=== PATIENT | male | born 1930 | race Hispanic/Latino ===

== ENCOUNTER 2017-03-24 12:13 | Inpatient (IN) | payer MEDICARE, OTHER ==
[2017-03-24] MEDS ORDERED: Morphine 2 mg/ml ISec IM STA ×2 (13:05→15:44)
--- NOTE | 2017-03-24 13:12 | ED PDOC ---
Arrival/HPI - General Historian: Patient, Family - History of Present Illness Time/Duration: < week Symptom Onset: Sudden Symptom Course: Unchanged Severity Level: Severe Context: Home <Katia Davies - Last Filed: 03/24/17 17:09> <SalWellington P - Last Filed: 03/24/17 22:14> - General Chief Complaint: Trauma Time Seen by Provider: 03/24/17 12:34 - History of Present Illness Narrative History of Present Illness (Text): 03/24/17 13:07 87M w/PMH sig for Parkinson's disease evaluated for right back pain x 2-3 days. Patient reports he feel on Thursday or Thursday - did not disclose to daughter. Pt was attempting to get something from closet, fell backward onto a small step stool. Pain started 1-2 days after fall, located over right midthoracic/flank area, severe, non radiating, constant. Pt took Ibuprofen without relief. Admits to pain aggravation with movement/deep inspiration/coughing/sneezing. Denies head trauma, LOC, N/V/F/C, SOB, chest pain, palpitations, bowel or bladder incontinence, saddle anesthesia, changes in motor strength or sensation from baseline, headache, vision changes, other complaints. PMH: Parkinson's disease, HTN, osteoporosis PSH: Cholecystectomy All: NKDA, AMS w/opiate pain meds SH: Lives with daughter, admits to 1/2 glass of wine nightly, denies tobacco or illicit drugs. PMD: Perveen (Katia Davies) Associated Symptoms (Text): 03/24/17 13:07 pain with deep inspiration, pain with movement, pain with ambulation (Katia Davies) Past Medical History - Provider Review Nursing Documentation Reviewed: Yes - Cardiac Hx Hypertension: Yes - Pulmonary Hx Respiratory Disorders: No - Neurological Hx Parkinson's Disease: Yes - HEENT Hx HEENT Disorder: No - Renal Hx Renal Disorder: No - Endocrine/Metabolic Hx Endocrine Disorders: No - Hematological/Oncological Hx Blood Disorders: No - Integumentary Hx Dermatological Disorder: No - Musculoskeletal/Rheumatological Hx Falls: Yes Hx Osteoporosis: Yes - Gastrointestinal Hx Gastrointestinal Disorders: No - Genitourinary/Gynecological Hx Genitourinary Disorders: No - Psychiatric Hx Psychophysiologic Disorder: No Hx Substance Use: No - Surgical History Hx Cholecystectomy: Yes <Katia Davies - Last Filed: 03/24/17 17:09> Family/Social History - Physician Review Nursing Documentation Reviewed: Yes Family/Social History: No Known Family HX Smoking Status: Never Smoked Hx Alcohol Use: No Hx Substance Use: No <Katia Davies - Last Filed: 03/24/17 17:09> Allergies/Home Meds <Katia Davies - Last Filed: 03/24/17 17:09> <Wellington Sal - Last Filed: 03/24/17 22:14> Allergies/Adverse Reactions: Allergies acetaminophen [From Percocet] Adverse Reaction (Severe, Verified 03/24/17 18:34) Agitation when given on past visit Daughter confirmed adverse reaction at bedside with this RN. oxycodone [From Percocet] Adverse Reaction (Severe, Verified 03/24/17 18:34) Agitation when given on past visit Daughter confirmed adverse reaction at bedside with this RN. Home Medications: Home Meds Medication Instructions Recorded Confirmed Carbidopa/Levodopa 1 tab PO TID 03/24/17 03/24/17 [Carbidopa-Levodopa 25-100 Tab] Gabapentin [Neurontin] 300 mg PO HS 03/24/17 03/24/17 Lisinopril/Hydrochlorothiazide 1 tab PO DAILY 03/24/17 03/24/17 [Lisinopril-Hctz 10-12.5 mg Tab] Review of Systems - Physician Review All systems were reviewed & negative as marked: Yes - Review of Systems Constitutional: Normal. absent: Fevers Eyes: Normal. absent: Vision Changes ENT: Normal. absent: Sore Throat Respiratory: absent: Normal (pain with deep inspiration) Cardiovascular: Normal. absent: Chest Pain, Palpitations Gastrointestinal: Normal. absent: Stool Changes, Constipation, Diarrhea, Nausea , Vomiting, Appetite Changes, Hematochezia, Hematemesis Genitourinary Male: Normal. absent: Dysuria, Frequency, Hematuria Musculoskeletal: Back Pain. absent: Neck Pain Skin: Normal Neurological: Normal. absent: Headache, Dizziness <Katia Davies - Last Filed: 03/24/17 17:09> Physical Exam Vital Signs Reviewed: Yes Temperature: Afebrile Blood Pressure: Hypertensive Pulse: Regular Respiratory Rate: Normal Appearance: Positive for: Non-Toxic, Comfortable Pain Distress: None Mental Status: Positive for: Alert and Oriented X 3 - Systems Exam Head: Present: Atraumatic, Normocephalic. No: Contusion, Ecchymosis Extroacular Muscles: Present: EOMI Mouth: Present: Moist Mucous Membranes Nose (External): Present: Atraumatic Neck: No: Paraspinal Tenderness Respiratory/Chest: Present: Clear to Auscultation, Good Air Exchange. No: Respiratory Distress, Accessory Muscle Use Cardiovascular: Present: Regular Rate and Rhythm, Normal S1, S2. No: Murmurs Abdomen: Present: Normal Bowel Sounds. No: Tenderness, Distention, Peritoneal Signs Back: No: Normal Inspection (tenderness of right midthoracic region of back/ flank, no point tenderness over spinus processes of vertbra), Midline Tenderness Upper Extremity: Present: Normal Inspection. No: Cyanosis, Edema Lower Extremity: Present: Normal Inspection. No: Edema Neurological: Present: GCS=15, CN II-XII Intact, Speech Normal, Motor Func Grossly Intact (baseline is decreased due to Parkinson's), Normal Sensory Function Skin: Present: Warm, Dry, Normal Color. No: Rashes, Erythematous, Laceration, Abrasion Psychiatric: Present: Alert, Oriented x 3, Normal Insight, Normal Concentration <Katia Davies - Last Filed: 03/24/17 17:09> Vital Signs Temp Pulse Resp BP Pulse Ox 03/24/17 16:19 83 18 175/81 H 96 03/24/17 14:13 98.4 F 76 19 150/70 97 03/24/17 12:18 98.2 F 76 16 192/78 H 98 03/24/17 12:13 98.3 F 70 17 156/66 H 96 Medical Decision Making <Katia Davies - Last Filed: 03/24/17 17:09> <Wellington Sal - Last Filed: 03/24/17 22:14> ED Course and Treatment: 03/24/17 13:14 will order imaging studies and give small dose of pain medication to make patient comfortable 03/24/17 16:[address] Beckwith, who accepts pt to her service. Dr. Beckwith requesting consults from Neurosurgery- Dr. Arciniega, Neurology-Dr. Marcelle Blackwell, and IR-Dr. Danny Zacarias. Consults were placed. Admission order submitted. Patient's daughter at bedside informed regarding decision to admit, verbalized understanding. 03/24/17 16:[address] Marcelle Blackwell, asked if pt had neurosurgery and IR consutations- informed Dr. Blackwell that they were already submitted. 03/24/17 17:[address] Lemos (neurosurgery)- he will see/evaluate the patient, recommended a back brace at this time. (Katia Davies) 03/24/17 22:12 seen and evaluated by myself. neurologically intact with vertebral compression fracture at t12. CT scan to [facility] evaluate, will admit for possible kyphoplasty and PT evaluation and possibly lumbar immmobilzer (Wellington Sal) - Lab Interpretations Lab Results: 03/24/17 16:15 03/24/17 16:15 Lab Results 03/24/17 16:15: PT 10.8, INR 1.00, APTT 28.6 03/24/17 16:15: Sodium 144, Potassium 4.2, Chloride 107, Carbon Dioxide 27, Anion Gap 14, BUN 24 H, Creatinine 0.8, Est GFR ( Amer) > 60, Est GFR ( Non-Af Amer) > 60, Random Glucose 113 H, Calcium 9.6 03/24/17 16:15: WBC 7.5 D, RBC 4.09, Hgb 13.0 L, Hct 37.8 L, MCV 92.4, MCH 31.8 , MCHC 34.4, RDW 13.3, Plt Count 115 L, MPV 10.9, Gran % 67.3, Lymph % (Auto) 22.4, [place] % (Auto) 9.1 H, Eos % (Auto) 1.1 L, Baso % (Auto) 0.1, Gran # 5.01, Lymph # 1.7, [place] # 0.7 H, Eos # 0.1, Baso # 0.01 - RAD Interpretation Radiology Orders: 03/24/17 13:05 RIBS BILATERAL W/PA CHEST [RAD] Stat 03/24/17 13:06 THORACIC SPINE [DORSAL (THORACIC) SPINE] [RAD] Stat 03/24/17 14:53 CHEST,ABDOMEN, PELVIS W/O CONT [CT] Stat - Medication Orders Current Medication Orders: Alprazolam (Xanax) 0.25 mg PO BID PRN; Protocol PRN Reason: anxieiy Stop: 03/31/17 18:31 Carbidopa/Levodopa (Sinemet) 1 tab PO TID TYLER Gabapentin (Neurontin) 300 mg PO HS TYLER PRN Reason: Protocol Last Admin: 03/24/17 22:08 Dose: 300 mg Behavioural Document 03/24/17 22:08 BR (Rec: 03/24/17 22:09 BR [facility] [id number]) Maintenance Maintenance Dose Yes Hydrochlorothiazide (Microzide) 12.5 mg PO DAILY TYLER Lisinopril (Zestril) 10 mg PO DAILY TYLER Tramadol/Acetaminophen (Ultracet 37.5/325 Mg) 1 tab PO Q6H PRN PRN Reason: Pain, moderate (4-7) Last Admin: 03/24/17 19:08 Dose: 1 tab MAR Pain Assessment Document 03/24/17 19:08 VON (Rec: 03/24/17 19:09 VON [id number]) Pain Reassessment Is this a pain reassessment? No Sleep Is patient sleeping during reassessment? No Presence of Pain Presence of Pain Yes Pain Scale Used Pain Scale Used Numeric Location Left, Right or Bilateral Bilateral Upper or Lower Lower Pain Location Body Site Back Description Description Constant Intensity of Pain at present 8 Acceptable Level of Pain 0 Pain Behavior Restlessness Alleviating Factors/Management Medication Techniques Alleviating Factors Medication Effects of Pain restlessness Effectiveness of Techniques relief Discontinued Medications Morphine Sulfate (Morphine) 2 mg IM STAT STA Stop: 03/24/17 13:06 Last Admin: 03/24/17 13:15 Dose: 2 mg MAR Pain Assessment Document 03/24/17 13:15 AB (Rec: 03/24/17 13:19 AB [id number]) Pain Reassessment Is this a pain reassessment? Yes Sleep Is patient sleeping during reassessment? No Presence of Pain Presence of Pain Yes Pain Scale Used Pain Scale Used Numeric Location Left, Right or Bilateral Right Upper or Lower Lower Pain Location Body Site Back Description Description Constant Intensity of Pain at present 7 Pain Behavior Moaning Grasping Site Facial Grimacing Aggravating Factors ADL's Changing Position Alleviating Factors/Management Medication Techniques Alleviating Factors Medication IM Administration Charges Document 03/24/17 13:15 AB (Rec: 03/24/17 13:19 AB [id number]) Injection Site MAR Injection Site Left Gluteus Medius Charges for Administration # of IM Administrations 1 Re-Assess: MAR Pain Assessment Document 03/24/17 14:15 AB (Rec: 03/24/17 15:19 [id number] Pain Reassessment Is this a pain reassessment? Yes Sleep Is patient sleeping during reassessment? No Presence of Pain Presence of Pain No Description Description Intermittent Morphine Sulfate (Morphine) 2 mg IM STAT STA Stop: 03/24/17 15:45 Last Admin: 03/24/17 16:04 Dose: 2 mg MAR Pain Assessment Document 03/24/17 16:04 AB (Rec: 03/24/17 16:04 [id number] Pain Reassessment Is this a pain reassessment? Yes Sleep Is patient sleeping during reassessment? No Presence of Pain Presence of Pain Yes Pain Scale Used Pain Scale Used Numeric Location Left, Right or Bilateral Right Pain Location Body Site Back Description Description Intermittent Alleviating Factors/Management Medication Techniques Alleviating Factors Medication IM Administration Charges Document 03/24/17 16:04 AB (Rec: 03/24/17 16:04 [id number]) Injection Site MAR Injection Site Left Deltoid Charges for Administration # of IM Administrations 1 Morphine Sulfate (Morphine) 4 mg IVP STAT STA Stop: 03/24/17 16:07 Last Admin: 03/24/17 16:22 Dose: 4 mg MAR Pain Assessment Document 03/24/17 16:22 [facility] (Rec: 03/24/17 16:26 [facility] [id number]) Pain Reassessment Is this a pain reassessment? Yes Sleep Is patient sleeping during reassessment? No Presence of Pain Presence of Pain Yes IVP Administration Document 03/24/17 16:22 [employer] (Rec: 03/24/17 16:26 [facility] [id number]) Charges for Administration # of IVP Administrations 1 Pneumococcal Polyvalent Vaccine (Pneumovax 23 Vaccine) 0.5 ml IM .ONCE ONE Stop: 03/24/17 21:11 - PA / SLIPCOVER CUTTER / Resident Statement / has examined the patient and agrees with the treatment plan. <Wellington Sal - Last Filed: 03/24/17 22:14> Disposition/Present on Arrival - Present on Arrival Any Indicators Present on Arrival: No History of DVT/PE: No History of Uncontrolled Diabetes: No Urinary Catheter: No History of Decub. Ulcer: No History Surgical Site Infection Following: None - Disposition Have Diagnosis and Disposition been Completed?: Yes Disposition Time: 16:59 Patient Plan: Admission <[place] - Last Filed: 03/24/17 17:09> - Present on Arrival Any Indicators Present on Arrival: No History of DVT/PE: No History of Uncontrolled Diabetes: No Urinary Catheter: No History of Decub. Ulcer: No History Surgical Site Infection Following: None - Disposition Have Diagnosis and Disposition been Completed?: Yes Patient Plan: Admission <Wellington Sal - Last Filed: 03/24/17 22:14> - Disposition Diagnosis: Vertebral compression fracture Disposition: HOSPITALIZED Patient Problems: Current Active Problems Problem Status Onset Vertebral compression fracture Acute Condition: STABLE
--- NOTE | 2017-03-24 14:11 | ED PDOC ---
Arrival/HPI - General Chief Complaint: Trauma Time Seen by Provider: 03/24/17 12:34 Past Medical History - Cardiac Hx Hypertension: Yes - Pulmonary Hx Respiratory Disorders: No - Neurological Hx Parkinson's Disease: Yes - HEENT Hx HEENT Disorder: No - Renal Hx Renal Disorder: No - Endocrine/Metabolic Hx Endocrine Disorders: No - Hematological/Oncological Hx Blood Disorders: No - Integumentary Hx Dermatological Disorder: No - Musculoskeletal/Rheumatological Hx Falls: Yes Hx Osteoporosis: Yes - Gastrointestinal Hx Gastrointestinal Disorders: No - Genitourinary/Gynecological Hx Genitourinary Disorders: No - Psychiatric Hx Psychophysiologic Disorder: No Hx Substance Use: No - Surgical History Hx Cholecystectomy: Yes Family/Social History Family/Social History: No Known Family HX Smoking Status: Never Smoked Hx Alcohol Use: No Hx Substance Use: No Allergies/Home Meds Allergies/Adverse Reactions: Allergies acetaminophen [From Percocet] Adverse Reaction (Severe, Verified 03/24/17 18:34) Agitation when given on past visit Daughter confirmed adverse reaction at bedside with this RN. oxycodone [From Percocet] Adverse Reaction (Severe, Verified 03/24/17 18:34) Agitation when given on past visit Daughter confirmed adverse reaction at bedside with this RN. Home Medications: Home Meds Medication Instructions Recorded Confirmed Carbidopa/Levodopa 1 tab PO TID 03/24/17 03/24/17 [Carbidopa-Levodopa 25-100 Tab] Gabapentin [Neurontin] 300 mg PO HS 03/24/17 03/24/17 Lisinopril/Hydrochlorothiazide 1 tab PO DAILY 03/24/17 03/24/17 [Lisinopril-Hctz 10-12.5 mg Tab] Physical Exam Vital Signs Temp Pulse Resp BP Pulse Ox 03/24/17 16:19 83 18 175/81 H 96 03/24/17 14:13 98.4 F 76 19 150/70 97 03/24/17 12:18 98.2 F 76 16 192/78 H 98 03/24/17 12:13 98.3 F 70 17 156/66 H 96 Medical Decision Making ED Course and Treatment: 03/24/17 22:03 this is a duplicate note, please see the resident note. - Lab Interpretations Lab Results: 03/24/17 16:15 03/24/17 16:15 Lab Results 03/24/17 16:15: PT 10.8, INR 1.00, APTT 28.6 03/24/17 16:15: Sodium 144, Potassium 4.2, Chloride 107, Carbon Dioxide 27, Anion Gap 14, BUN 24 H, Creatinine 0.8, Est GFR ( Amer) > 60, Est GFR ( Non-Af Amer) > 60, Random Glucose 113 H, Calcium 9.6 03/24/17 16:15: WBC 7.5 D, RBC 4.09, Hgb 13.0 L, Hct 37.8 L, MCV 92.4, MCH 31.8 , MCHC 34.4, RDW 13.3, Plt Count 115 L, MPV 10.9, Gran % 67.3, Lymph % (Auto) 22.4, [place] % (Auto) 9.1 H, Eos % (Auto) 1.1 L, Baso % (Auto) 0.1, Gran # 5.01, Lymph # 1.7, [place] # 0.7 H, Eos # 0.1, Baso # 0.01 - RAD Interpretation Radiology Orders: 03/24/17 13:05 RIBS BILATERAL W/PA CHEST [RAD] Stat 03/24/17 13:06 THORACIC SPINE [DORSAL (THORACIC) SPINE] [RAD] Stat 03/24/17 14:53 CHEST,ABDOMEN, PELVIS W/O CONT [CT] Stat - Medication Orders Current Medication Orders: Alprazolam (Xanax) 0.25 mg PO BID PRN; Protocol PRN Reason: anxieiy Stop: 03/31/17 18:31 Carbidopa/Levodopa (Sinemet) 1 tab PO TID TYLER Gabapentin (Neurontin) 300 mg PO HS TYLER PRN Reason: Protocol Hydrochlorothiazide (Microzide) 12.5 mg PO DAILY TYLER Lisinopril (Zestril) 10 mg PO DAILY TYLER Tramadol/Acetaminophen (Ultracet 37.5/325 Mg) 1 tab PO Q6H PRN PRN Reason: Pain, moderate (4-7) Last Admin: 03/24/17 19:08 Dose: 1 tab MAR Pain Assessment Document 03/24/17 19:08 VON (Rec: 03/24/17 19:09 VON [id number]) Pain Reassessment Is this a pain reassessment? No Sleep Is patient sleeping during reassessment? No Presence of Pain Presence of Pain Yes Pain Scale Used Pain Scale Used Numeric Location Left, Right or Bilateral Bilateral Upper or Lower Lower Pain Location Body Site Back Description Description Constant Intensity of Pain at present 8 Acceptable Level of Pain 0 Pain Behavior Restlessness Alleviating Factors/Management Medication Techniques Alleviating Factors Medication Effects of Pain restlessness Effectiveness of Techniques relief Discontinued Medications Morphine Sulfate (Morphine) 2 mg IM STAT STA Stop: 03/24/17 13:06 Last Admin: 03/24/17 13:15 Dose: 2 mg [facility] Pain Assessment Document 03/24/17 13:15 AB (Rec: 03/24/17 13:19 [id number] Pain Reassessment Is this a pain reassessment? Yes Sleep Is patient sleeping during reassessment? No Presence of Pain Presence of Pain Yes Pain Scale Used Pain Scale Used Numeric Location Left, Right or Bilateral Right Upper or Lower Lower Pain Location Body Site Back Description Description Constant Intensity of Pain at present 7 Pain Behavior Moaning Grasping Site Facial Grimacing Aggravating Factors ADL's Changing Position Alleviating Factors/Management Medication Techniques Alleviating Factors Medication IM Administration Charges Document 03/24/17 13:15 AB (Rec: 03/24/17 13:19 [id number]) Injection Site MAR Injection Site Left Gluteus Medius Charges for Administration # of IM Administrations 1 Re-Assess: MAR Pain Assessment Document 03/24/17 14:15 AB (Rec: 03/24/17 15:19 [id number]) Pain Reassessment Is this a pain reassessment? Yes Sleep Is patient sleeping during reassessment? No Presence of Pain Presence of Pain No Description Description Intermittent Morphine Sulfate (Morphine) 2 mg IM STAT STA Stop: 03/24/17 15:45 Last Admin: 03/24/17 16:04 Dose: 2 mg [facility] Pain Assessment Document 03/24/17 16:04 AB (Rec: 03/24/17 16:04 [id number]) Pain Reassessment Is this a pain reassessment? Yes Sleep Is patient sleeping during reassessment? No Presence of Pain Presence of Pain Yes Pain Scale Used Pain Scale Used Numeric Location Left, Right or Bilateral Right Pain Location Body Site Back Description Description Intermittent Alleviating Factors/Management Medication Techniques Alleviating Factors Medication IM Administration Charges Document 03/24/17 16:04 AB (Rec: 03/24/17 16:04 AB [id number]) Injection Site MAR Injection Site Left Deltoid Charges for Administration # of IM Administrations 1 Morphine Sulfate (Morphine) 4 mg IVP STAT STA Stop: 03/24/17 16:07 Last Admin: 03/24/17 16:22 Dose: 4 mg MAR Pain Assessment Document 03/24/17 16:22 [facility] (Rec: 03/24/17 16:26 [facility] [id number]) Pain Reassessment Is this a pain reassessment? Yes Sleep Is patient sleeping during reassessment? No Presence of Pain Presence of Pain Yes IVP Administration Document 03/24/17 16:22 [facility] (Rec: 03/24/17 16:26 [facility] [id number]) Charges for Administration # of IVP Administrations 1 Pneumococcal Polyvalent Vaccine (Pneumovax 23 Vaccine) 0.5 ml IM .ONCE ONE Stop: 03/24/17 21:11 Disposition/Present on Arrival - Present on Arrival Any Indicators Present on Arrival: No History of DVT/PE: No History of Uncontrolled Diabetes: No Urinary Catheter: No History of Decub. Ulcer: No History Surgical Site Infection Following: None - Disposition Have Diagnosis and Disposition been Completed?: Yes Diagnosis: Vertebral compression fracture Disposition: HOSPITALIZED Disposition Time: 15:00 Patient Plan: Admission Patient Problems: Current Active Problems Problem Status Onset Vertebral compression fracture Acute Condition: STABLE
--- NOTE | 2017-03-24 14:44 | RAD ---
PROCEDURE: Radiographs of the chest and bilateral ribs HISTORY: s/p fall COMPARISON: None available. TECHNIQUE: Frontal radiograph of the chest and multiple oblique radiographs of the bilateral ribs were obtained. FINDINGS: RIGHT RIBS: No fracture or focal lesion visualized. LEFT RIBS: No fracture or focal lesion visualized. LUNGS: Clear. PLEURA: No pneumothorax or pleural fluid. CARDIOVASCULAR: Normal sized heart. No pulmonary vascular congestion. OTHER FINDINGS: None. IMPRESSION: Unremarkable radiographs of the chest and bilateral ribs. No rib fracture.
--- NOTE | 2017-03-24 14:50 | RAD ---
HISTORY: s/p fall COMPARISON: No prior. FINDINGS: BONES: There is a severe compression fracture at T12. No prior studies for comparison DISC SPACES: Normal. SOFT TISSUES: Normal. OTHER FINDINGS: None. IMPRESSION: Severe compression fracture of T12
[2017-03-24] MEDS ORDERED: Morphine 4 mg/ml ISec IVP STA (16:06)
[2017-03-24 16:30] LABS: BASO # 0.01 K/mm3 (0.0-2.0); BASO % 0.1 % (0.0-3.0); EOS # 0.1 (0.0-0.7); EOS % 1.1 % (1.5-5.0); GRAN # 5.01 (1.4-6.5); GRAN % 67.3 % (50.0-68.0); HEMATOCRIT 37.8 % (42.0-52.0); LYMPH # 1.7 (1.2-3.4); LYMPH % 22.4 % (22.0-35.0); MEAN CELL VOLUME 92.4 fl (80.0-105.0); MEAN CORPUSCULAR HEMOGLOBIN 31.8 pg (25.0-35.0); MEAN CORPUSCULAR HGB CONC 34.4 g/dl (31.0-37.0); MEAN PLATELET VOLUME 10.9 fl (7.0-11.0); MONO # 0.7 (0.1-0.6); MONO % 9.1 % (1.0-6.0); RED CELL DISTRIBUTION WIDTH 13.3 % (11.5-14.5); WHITE BLOOD COUNT 7.5 10^3/ul (4.5-11.0)
[2017-03-24 16:38] LABS: BLOOD UREA NITROGEN 24 mg/dL (7-21); CALCIUM 9.6 mg/dL (8.4-10.5); CARBON DIOXIDE 27 mmol/L (21-33); CHLORIDE 107 mmol/L (98-107); GFR AFRICAN-AMERICAN > 60; GLUCOSE,RANDOM 113 mg/dL (70-110); POTASSIUM 4.2 mmol/L (3.6-5.0); SODIUM 144 mmol/L (132-148)
[2017-03-24 16:44] LABS: PARTIAL THROMBOPLASTIN TIME 28.6 Seconds (23.7-30.8)
--- NOTE | 2017-03-24 16:57 | CT ---
PROCEDURE: CT Chest, Abdomen and Pelvis without intravenous contrast HISTORY: s/p fall COMPARISON: None. TECHNIQUE: Radiation dose: Total exam DLP = 587.14 mGy-cm. This CT exam was performed using one or more of the following dose reduction techniques: Automated exposure control, adjustment of the mA and/or kV according to patient size, and/or use of iterative reconstruction technique. FINDINGS: CT CHEST WITHOUT CONTRAST: LUNGS: Minimal bilateral lower lobe and lingular subsegmental atelectasis. . MEDIASTINUM: Unremarkable. Normal caliber aorta and pulmonary arterial trunk. Normal size heart. LYMPH NODES: Unremarkable. PLEURA: Unremarkable. No pneumothorax. No pleural fluid. BONES: Moderate T12 anterior wedge compression deformity, age indeterminate. No paraspinous hemorrhage. No bony retropulsion. OTHER FINDINGS: None. CT ABDOMEN AND PELVIS: LIVER: Unremarkable. No gross lesion or ductal dilatation. GALLBLADDER AND BILE DUCTS: Status post cholecystectomy PANCREAS: Unremarkable. No gross lesion or ductal dilatation. SPLEEN: Unremarkable. ADRENALS: Unremarkable. No mass. KIDNEYS AND URETERS: Unremarkable. No hydronephrosis. No solid mass. 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 No aortic aneurysm. BOWEL: Unremarkable. No obstruction. No gross mural thickening. APPENDIX: Normal appendix. PERITONEUM: Unremarkable. No free fluid. No free air. LYMPH NODES: Unremarkable. No enlarged lymph nodes. BLADDER: Unremarkable. REPRODUCTIVE: Unremarkable prostate BONES: No acute fracture. OTHER FINDINGS: None. IMPRESSION: Moderate anterior wedge compression deformity of the T12 vertebra, age indeterminate. No other fracture identified. 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 No evidence of thoracic or abdominal/pelvic visceral injury. No other significant abnormality.
[2017-03-24] MEDS ORDERED: Oxycodone/Acetaminophen 5/325 mg Tab PO PRN (18:08)
[2017-03-24] MEDS: TraMADol/Apap 37.5/325 mg Tab PO PRN (19:08)
[2017-03-24 21:09] VITALS: BMI 21.6
[2017-03-24] MEDS ORDERED: Pneumococcal 23-Valent Vaccine IM ONE (21:10)
--- NOTE | 2017-03-24 21:11 | MRI ---
EXAM: MR Thoracic Spine Without Intravenous Contrast EXAM DATE/TIME: 03/24/2017 6:24 PM CLINICAL HISTORY: The patient age is 87 years old and is male; Pain; Pain in thoracic spine; Other: Fell; Patient HX: Fell - R/O compression FX. ; Additional info: Fall/compression fracture Facility exam id and description: Mri spts spinal canal thoracic w/o cont TECHNIQUE: Magnetic resonance images of the thoracic spine without intravenous contrast in multiple planes. COMPARISON: DX - DORSAL (THORACIC) SPINE 03/24/2017 1:29:31 PM FINDINGS: Vertebrae: There is a moderate compression fracture of the T12 vertebral body. There is no acute marrow edema this level, consistent with a chronic deformity. There is minimal retropulsion at this level. There is significant increased kyphosis of the thoracic spine. The remaining thoracic vertebral bodies are normal in height, without abnormal subluxation. Discs/spinal canal/neural foramina: There is a significant decrease in caliber of the upper thoracic spinal cord, consistent with atrophy. There is a diffuse degenerative decreased in T2 signal intensity of the thoracic discs, with mild disc bulging at multiple thoracic levels. There is no posterior disc herniation, thecal sac compression, or significant neural foraminal narrowing at any thoracic level. There is significant flow artifact within the thoracic spinal canal. Spinal cord: The distal end of the conus medullaris ends at T12-L1, normal in position. Vasculature: There is borderline aneurysmal dilatation of the descending thoracic aorta measuring 3.1 cm in diameter. Lungs: MRI is limited for the evaluation of the lungs. Other: There is a small T2 hyperintense right renal cyst measuring 1.5 cm in diameter. IMPRESSION: 1. There is a moderate compression fracture of the T12 vertebral body. There is no acute marrow edema at this level, consistent with a chronic deformity. There is minimal retropulsion at this level. 2. There is a significant decrease in caliber of the upper thoracic spinal cord, consistent with atrophy. 3. There is significant increased kyphosis of the thoracic spine. 4. There is borderline aneurysmal dilatation of the descending thoracic aorta measuring 3.1 cm in diameter. 5. Degenerative changes are identified diffusely within the thoracic spine. There is no posterior disc herniation, thecal sac compression, or significant neural foraminal narrowing at any thoracic level. 6. Incidental/non-acute findings are described above.
--- NOTE | 2017-03-25 03:34 | HP ---
HISTORY OF PRESENT ILLNESS: The patient is an 87-year-old known to me from office practice. He lives with his daughter who states that he fell 2-3 days ago and did not tell anybody. The patient states he fell over the weekend, did not report to his daughter. The patient states that he was trying to grab something from his closet and lost balance and fell backward hitting the stool. He did not feel pain that day; however, after 2-3 days, he started to have pain in the right mid thoracic area. So, he told his daughter who brought him to emergency room. The patient states he tried to take Motrin with no significant relief. Complained of pain upon sneezing, coughing, deep respiration and upon subtle movement. Denies any nausea or vomiting. No diarrhea, no fever, no chills, no cough, no congestion, no urine or bladder issue. PAST MEDICAL HISTORY: Significant for: 1. Hypertension. 2. Degenerative disk disease. 3. Parkinson's disease. 4. Unstable gait. ALLERGIES: NOT ALLERGIC TO ANY MEDICATION. PAST SURGICAL HISTORY: Positive for cholecystectomy . SOCIAL HISTORY: He is retired, lives with his daughter. Carlos smoking or drinking. REVIEW OF SYSTEMS: Significant for mid back pain. PHYSICAL EXAMINATION: GENERAL: He is awake and alert, communicative. VITAL SIGNS: He is afebrile. Pulse 88, respirations 18, blood pressure 163/78. HEART: S1 and S2 audible. LUNGS: Bilateral fair airflow. No rhonchi or crackle. ABDOMEN: Soft and nontender. No rebound. No guarding. NEUROLOGICAL: The patient is awake and alert, able to communicate. Complained of palpable discomfort in the thoracic area. EXTREMITIES: Bilateral legs, no edema. No focal deficits. LABORATORY DATA: WBC 7.5, hemoglobin 13, hematocrit 37.8, and platelets of 115. PT 10.8 and INR 1.00. Chemistry: Sodium 144, potassium 4.2, chloride 107, CO2 of 27, BUN 24, creatinine 0.2, blood sugar of 113. He had thoracic spine x-ray done that showed a compression fracture of T12. Rib x-ray did not remarkable for any rib fracture. CT of the chest, abdomen and pelvis shows anterior wedge compression deformity of T12. No other fracture identified. 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 No evidence of thoracic, abdominal, pelvic or visceral injury. ASSESSMENT: 1. Status post fall. 2. T12 compression fracture with no cord compression. 3. Hypertension. 4. Parkinson's disease. 5. T12 compression fracture. PLAN: The patient will be admitted on Med-Surg for pain control. We will request Dr. Danny Zacarias for possible kyphoplasty. Get neurosurgeon and neurology consult and we will resume his medications. I will order for MRI of thoracic spine to further see the detail if he is a candidate of kyphoplasty. We will start him on laxative. We will follow up this patient in a.m. Vishnu Beckwith MD
[2017-03-25] MEDS: Carbidopa/Levodopa 25/250 PO SCH ×3 (09:29→17:55)
--- NOTE | 2017-03-25 11:01 | CP.PCM.PN ---
Subjective - Date & Time of Evaluation Date of Evaluation: 03/25/17 Time of Evaluation: 10:59 - Subjective Subjective: 87 yo male s/p fall T12 comp fx about 35-40% no deficits stable fx needs pain control suggest root brace while oob if he will wear it no surgery indicated at this time Objective - Vital Signs/Intake and Output Vital Signs (last 24 hours): Temp Pulse Resp BP Pulse Ox 97.6 F 67 18 145/55 L 97 03/25/17 07:00 03/25/17 09:29 03/25/17 07:00 03/25/17 09:29 03/25/17 07:00 Intake and Output: 03/25/17 03/25/17 06:59 18:59 Intake Total 420 Output Total 250 Balance 170 - Medications Medications: Current Medications Alprazolam (Xanax) 0.25 mg PO BID PRN; Protocol PRN Reason: anxieiy Stop: 03/31/17 18:31 Carbidopa/Levodopa (Sinemet) 1 tab PO TID [facility] Last Admin: 03/25/17 09:29 Dose: 1 tab Gabapentin (Neurontin) 300 mg PO HS [facility] PRN Reason: Protocol Last Admin: 03/24/17 22:08 Dose: 300 mg Hydrochlorothiazide (Microzide) 12.5 mg PO DAILY [facility] Last Admin: 03/25/17 09:29 Dose: 12.5 mg Lisinopril (Zestril) 10 mg PO DAILY [facility] Last Admin: 03/25/17 09:29 Dose: 10 mg Tramadol/Acetaminophen (Ultracet 37.5/325 Mg) 1 tab PO Q6H PRN PRN Reason: Pain, moderate (4-7) Last Admin: 03/24/17 19:08 Dose: 1 tab - Labs Labs: PT 10.8 Seconds (9.9-11.8) 03/24/17 16:15 INR 1.00 (0.93-1.08) 03/24/17 16:15 APTT 28.6 Seconds (23.7-30.8) 03/24/17 16:15
--- NOTE | 2017-03-25 11:02 | CP.PCM.CON ---
<Barbara Lewis - Last Filed: 03/25/17 11:07> History of Present Illness - History of Present Illness History of Present Illness: Neurology Consult Note for Augustin Brown PGY2 Reason for consult: Compression fracture This is an 87Y M with PMH HTN, osteoporosis and Parkinsons who came to ED for R sided back pain x 2-3 days. Patient reports that he was reaching to get something out of the closet and fell backwards onto a step stool. He did not hit his head, lose consciousness, have tongue biting, bowel/bladder incontinence , numbness/tingling. A couple days later, he began to have R sided back pain that is constant and does not radiate. It is worse with movement as well as coughing/sneezing. Patient denies CP, SOB, n/v/d, numbness/tingling, fever/ chills, vision changes, headache or dizziness. Patient reports he sees Dr. Ponce for his Parkinson's. In ED, patient was found to have T12 compression fracture without any rib fractures noted. PMH: HTN, osteoporosis and Parkinsons PSH: Cholecystectomy Meds: As per AUG All: Percocet (Cause AMS) SH: Denies tobacco or drug use. Drinks 1/2 glass of wine at night. Lives with Daughter. Review of Systems - Review of Systems All systems: reviewed and no additional remarkable complaints except Review of Systems: + back pain Past Patient History - Past Social History Smoking Status: Never Smoked Alcohol: < 2 Drinks/Day Drugs: Denies Home Situation {Lives}: With Family - CARDIAC Hx Hypertension: Yes - PULMONARY Hx Respiratory Disorders: No - NEUROLOGICAL Hx Parkinson's Disease: Yes - HEENT Hx HEENT Problems: No - RENAL Hx Chronic Kidney Disease: No - ENDOCRINE/METABOLIC Hx Endocrine Disorders: No - HEMATOLOGICAL/ONCOLOGICAL Hx Blood Disorders: No - INTEGUMENTARY Hx Dermatological Problems: No - MUSCULOSKELETAL/RHEUMATOLOGICAL Hx Falls: Yes Hx Osteoporosis: Yes - GASTROINTESTINAL Hx Gastrointestinal Disorders: No - GENITOURINARY/GYNECOLOGICAL Hx Genitourinary Disorders: No - PSYCHIATRIC Hx Psychophysiologic Disorder: No Hx Substance Use: No - SURGICAL HISTORY Hx Cholecystectomy: Yes Meds Allergies/Adverse Reactions: Allergies Allergy/AdvReac Type Severity Reaction Status Date / Time acetaminophen [From Percocet] AdvReac Severe Agitation Verified 03/24/17 18:34 when given on past visit oxycodone [From Percocet] AdvReac Severe Agitation Verified 03/24/17 18:34 when given on past visit - Medications Medications: Current Medications Alprazolam (Xanax) 0.25 mg PO BID PRN; Protocol PRN Reason: anxieiy Stop: 03/31/17 18:31 Carbidopa/Levodopa (Sinemet) 1 tab PO TID [facility] Last Admin: 03/25/17 09:29 Dose: 1 tab Gabapentin (Neurontin) 300 mg PO HS [facility] PRN Reason: Protocol Last Admin: 03/24/17 22:08 Dose: 300 mg Hydrochlorothiazide (Microzide) 12.5 mg PO DAILY [facility] Last Admin: 03/25/17 09:29 Dose: 12.5 mg Lisinopril (Zestril) 10 mg PO DAILY [facility] Last Admin: 03/25/17 09:29 Dose: 10 mg Tramadol/Acetaminophen (Ultracet 37.5/325 Mg) 1 tab PO Q6H PRN PRN Reason: Pain, moderate (4-7) Last Admin: 03/24/17 19:08 Dose: 1 tab Physical Exam - Constitutional Appears: No Acute Distress - Head Exam Head Exam: ATRAUMATIC, NORMAL INSPECTION, NORMOCEPHALIC - Eye Exam Eye Exam: Normal appearance, PERRL Pupil Exam: NORMAL ACCOMODATION, PERRL - ENT Exam ENT Exam: Mucous Membranes Moist - Neck Exam Neck exam: Positive for: Normal Inspection - Respiratory Exam Respiratory Exam: Clear to Auscultation Bilateral, NORMAL BREATHING PATTERN. absent: Rales, Rhonchi, Wheezes - Cardiovascular Exam Cardiovascular Exam: REGULAR RHYTHM, +S1, +S2. absent: Gallop, Rubs, Systolic Murmur - GI/Abdominal Exam GI & Abdominal Exam: Normal Bowel Sounds, Soft. absent: Mass, Rebound, Rigid, Tenderness - Extremities Exam Extremities exam: Positive for: normal inspection. Negative for: calf tenderness, pedal edema - Back Exam Back exam: vertebral tenderness (lower thoracic ) - Neurological Exam Neurological exam: Alert, CN II-XII Intact, Oriented x3 Additional comments: Resting pill rolling tremor. Cog wheel rigidity noted. - Psychiatric Exam Psychiatric exam: Normal Affect, Normal Mood - Skin Skin Exam: Dry, Intact, Normal Color, Warm Results - Vital Signs Recent Vital Signs: Last Vital Signs Temp 97.6 F 03/25/17 07:00 Pulse 67 03/25/17 09:29 Resp 18 03/25/17 07:00 BP 145/55 L 03/25/17 09:29 Pulse Ox 97 03/25/17 07:00 - Labs Result Diagrams: 03/24/17 16:15 03/24/17 16:15 Assessment & Plan - Assessment and Plan (Free Text) Assessment: This is an 87Y M with PMH HTN, osteoporosis and Parkinsons who was admitted for T12 compression fracture. MRI of thoracic spine showed moderate compression fracture of T12 vertebral body no acute edema consistent with chronic deformity and significant kyphosis of thoracic spine. Plan: - As per neurosurgery, no surgical intervention at this time - IR consulted for possible kyphoplasty - Recommend conservative management- pain control, heat packs, physical therapy - Avoid sedating medications due to history of AMS on Percocet - Continue Sinemet - Physical therapy/occupational therapy evaluation. Patient should follow up with his neurologist, Dr. Ponce as outpatient. Case seen, discussed and reviewed with Dr. Blackwell. Augustin Lewis PGY2 - Date & Time Date: 03/25/17 Time: 11:20 <Francisco Blackwell - Last Filed: 03/25/17 14:11> Meds - Medications Medications: Current Medications Alprazolam (Xanax) 0.25 mg PO BID PRN; Protocol PRN Reason: anxieiy Stop: 03/31/17 18:31 Carbidopa/Levodopa (Sinemet) 1 tab PO TID [facility] Last Admin: 03/25/17 14:07 Dose: Not Given Gabapentin (Neurontin) 300 mg PO HS [facility] PRN Reason: Protocol Last Admin: 03/24/17 22:08 Dose: 300 mg Hydrochlorothiazide (Microzide) 12.5 mg PO DAILY [facility] Last Admin: 03/25/17 09:29 Dose: 12.5 mg Lisinopril (Zestril) 10 mg PO DAILY [facility] Last Admin: 03/25/17 09:29 Dose: 10 mg Tramadol/Acetaminophen (Ultracet 37.5/325 Mg) 1 tab PO Q6H PRN PRN Reason: Pain, moderate (4-7) Last Admin: 03/24/17 19:08 Dose: 1 tab Results - Vital Signs Recent Vital Signs: Last Vital Signs Temp 97.6 F 03/25/17 07:00 Pulse 67 03/25/17 09:29 Resp 18 03/25/17 07:00 BP 145/55 L 03/25/17 09:29 Pulse Ox 97 03/25/17 07:00 - Labs Result Diagrams: 03/24/17 16:15 03/24/17 16:15 Attending/Attestation - Attestation I have personally seen and examined this patient.: Yes I have fully participated in the care of the patient.: Yes I have reviewed all pertinent clinical information: Yes
[2017-03-25] MEDS: TraMADol/Apap 37.5/325 mg Tab PO PRN (17:59)
--- NOTE | 2017-03-25 22:00 | PN ---
DATE: SUBJECTIVE: The patient is an 87-year-old, seen and examined, lying in bed, seems to be comfortable. He is little anxious, has positive tremor because of his Parkinson's. PHYSICAL EXAMINATION VITAL SIGNS: Afebrile, pulse 60, respirations 18, blood pressure 145/55. LUNGS: Bilateral fair air flow. No rhonchi or crackle. HEART: S1 and S2 audible. ABDOMEN: Soft, nontender. No rebound. No guarding. NEUROLOGICAL: The patient is awake and alert, able to communicate. LABORATORY DATA: Thoracic spine MRI shows there is a moderate compression fracture of T12 vertebral body. No acute marrow edema, this level consistent with chronic deformity. There is minimal re-propulsion. There is a significant decrease in caliber of upper thoracic spinal cord consistent with atrophy, significant increase kyphosis of thoracic spine. There is borderline aneurysmal dilatation of descending thoracic aorta measuring 3.1 cm, degenerative changes in the whole thoracic spine. ASSESSMENT: 1. Status post fall. 2. T12 wedge compression fracture seems to be chronic. 3. Parkinson's disease. 4. Hypertension. PLAN: Awaiting Dr. Danny Zacarias's input. He might need kyphoplasty. At this point, his pain seems to be controlled. We will continue him on his usual medication. Continue him on gabapentin and further plan according to Dr. Danny Zacarias's input. Vishnu Beckwith MD
[2017-03-26] MEDS: TraMADol/Apap 37.5/325 mg Tab PO PRN (08:01)
--- NOTE | 2017-03-26 09:35 | CP.PCM.PN ---
Addendum entered and electronically signed by Barbara Lewis DO 03/26/17 13: 44: No further neurological work up needed at this time. Will sign off. Thank you for this consultation. Please re-consult if needed. Original Note: <Barbara Lewis - Last Filed: 03/26/17 12:39> Subjective - Date & Time of Evaluation Date of Evaluation: 03/26/17 Time of Evaluation: 09:32 - Subjective Subjective: Neurology Progress Note for Augustin Brown PGY2 Patient seen and examined at bedside. As per nursing, there were no acute overnight events. Patient was resting comfortably in bed. He states he still has pain in his R flank area and has been constipated. He denies CP, SOB, n/v/d , numbness/tingling, fever/chills, bowel/bladder incontinence or retention. Objective - Vital Signs/Intake and Output Vital Signs (last 24 hours): Temp Pulse Resp BP Pulse Ox 98.1 F 66 20 140/50 L 98 03/26/17 07:23 03/26/17 07:23 03/26/17 07:23 03/26/17 07:23 03/26/17 07:23 Intake and Output: 03/26/17 03/26/17 06:59 18:59 Intake Total 600 180 Output Total 200 Balance 400 180 - Medications Medications: Current Medications Alprazolam (Xanax) 0.25 mg PO BID PRN; Protocol PRN Reason: anxieiy Stop: 03/31/17 18:31 Carbidopa/Levodopa (Sinemet) 1 tab PO TID [facility] Last Admin: 03/25/17 17:55 Dose: 1 tab Gabapentin (Neurontin) 300 mg PO HS [facility] PRN Reason: Protocol Last Admin: 03/25/17 21:28 Dose: 300 mg Hydrochlorothiazide (Microzide) 12.5 mg PO DAILY [facility] Last Admin: 03/25/17 09:29 Dose: 12.5 mg Lisinopril (Zestril) 10 mg PO DAILY [facility] Last Admin: 03/25/17 09:29 Dose: 10 mg Polyethylene Glycol (Miralax) 17 gm PO DAILY [facility] Tramadol/Acetaminophen (Ultracet 37.5/325 Mg) 1 tab PO Q6H PRN PRN Reason: Pain, moderate (4-7) Last Admin: 03/26/17 08:01 Dose: 1 tab - Labs Labs: PT 10.8 Seconds (9.9-11.8) 03/24/17 16:15 INR 1.00 (0.93-1.08) 03/24/17 16:15 APTT 28.6 Seconds (23.7-30.8) 03/24/17 16:15 - Constitutional Appears: No Acute Distress - Head Exam Head Exam: ATRAUMATIC, NORMAL INSPECTION, NORMOCEPHALIC - Eye Exam Eye Exam: Normal appearance, PERRL Pupil Exam: NORMAL ACCOMODATION, PERRL - ENT Exam ENT Exam: Mucous Membranes Moist - Neck Exam Neck Exam: Full ROM - Respiratory Exam Respiratory Exam: Clear to Ausculation Bilateral, NORMAL BREATHING PATTERN. absent: Rales, Rhonchi, Wheezes - Cardiovascular Exam Cardiovascular Exam: REGULAR RHYTHM, +S1, +S2. absent: Gallop, Rubs, Murmur - GI/Abdominal Exam GI & Abdominal Exam: Soft, Normal Bowel Sounds. absent: Rigid, Tenderness, Mass , Rebound - Back Exam Back Exam: vertebral tenderness (lower thoracic) - Neurological Exam Neurological Exam: Alert, Awake, CN II-XII Intact, Oriented x3 Neuro motor strength exam: Left Upper Extremity: 5, Right Upper Extremity: 5, Left Lower Extremity: 5, Right Lower Extremity: 5 Additional comments: resting pill rolling tremor. Mild cogwheel rigidity - Psychiatric Exam Psychiatric exam: Normal Affect, Normal Mood - Skin Skin Exam: Dry, Intact, Normal Color, Warm Assessment and Plan - Assessment and Plan (Free Text) Assessment: This is an 87Y M with PMH HTN, osteoporosis and Parkinsons who was admitted for T12 compression fracture. MRI of thoracic spine showed moderate compression fracture of T12 vertebral body no acute edema consistent with chronic deformity and significant kyphosis of thoracic spine. Patient will need evaluation by IR for possible kyphoplasty. Plan: - Patient out of bed to chair - Miralax for constipation - No surgical intervention as per neurosurgery - Spoke with Dr. Zacarias and reports fracture looks chronic and recommends conservative management rather than kyphoplasty - Continue conservative management: Pain control, physical therapy, and heat packs - Avoid sedating medications due to history of AMS on Percocet - Continue Sinemet PT recommended TCU. Patient may need home health aid because he lives with his daughter and she works all day. Patient reports he needs help at home during the day. Recommend to follow up with his neurologist, Dr. Ponce as outpatient. Case seen, discussed and reviewed with Dr. Blackwell. Augustin Lewis PGY2 <Francisco Blackwell - Last Filed: 03/26/17 13:51> Objective - Vital Signs/Intake and Output Vital Signs (last 24 hours): Temp Pulse Resp BP Pulse Ox 98.1 F 66 20 140/50 L 98 03/26/17 07:23 03/26/17 09:53 03/26/17 07:23 03/26/17 09:53 03/26/17 07:23 Intake and Output: 03/26/17 03/26/17 06:59 18:59 Intake Total 600 460 Output Total 200 Balance 400 460 - Medications Medications: Current Medications Alprazolam (Xanax) 0.25 mg PO BID PRN; Protocol PRN Reason: anxieiy Stop: 03/31/17 18:31 Carbidopa/Levodopa (Sinemet) 1 tab PO TID [facility] Last Admin: 03/26/17 09:54 Dose: 1 tab Gabapentin (Neurontin) 300 mg PO HS [facility] PRN Reason: Protocol Last Admin: 03/25/17 21:28 Dose: 300 mg Hydrochlorothiazide (Microzide) 12.5 mg PO DAILY [facility] Last Admin: 03/26/17 09:54 Dose: 12.5 mg Lisinopril (Zestril) 10 mg PO DAILY [facility] Last Admin: 03/26/17 09:53 Dose: 10 mg Polyethylene Glycol (Miralax) 17 gm PO DAILY [facility] Last Admin: 03/26/17 09:54 Dose: 17 gm Tramadol/Acetaminophen (Ultracet 37.5/325 Mg) 1 tab PO Q6H PRN PRN Reason: Pain, moderate (4-7) Last Admin: 03/26/17 08:01 Dose: 1 tab - Labs Labs: PT 10.8 Seconds (9.9-11.8) 03/24/17 16:15 INR 1.00 (0.93-1.08) 03/24/17 16:15 APTT 28.6 Seconds (23.7-30.8) 03/24/17 16:15 Attending/Attestation - Attestation I have personally seen and examined this patient.: Yes I have fully participated in the care of the patient.: Yes I have reviewed all pertinent clinical information, including history, physical exam and plan: Yes
[2017-03-26] MEDS: Carbidopa/Levodopa 25/250 PO SCH ×3 (09:54→17:53)
[2017-03-26] MEDS ORDERED: POLYETHYLENE GLYCOL 3350 17 GM/Dose PACKET PO SCH (10:00)
--- NOTE | 2017-03-26 12:57 | PN ---
DATE: SUBJECTIVE: The patient is an 87 years old, seen and examined, sitting in chair, seems to be comfortable. Has minimal pain in the mid back area. No nausea or vomiting. No diarrhea. Eating and tolerating. PHYSICAL EXAMINATION: VITAL SIGNS: The patient is afebrile, pulse 66, respirations 20, and blood pressure 140/50. LUNGS: Bilateral fair airflow. No rhonchi or crackles. HEART: S1 and S2 audible. ABDOMEN: Soft and nontender. No rebound. No guarding. NEUROLOGIC: The patient is awake and alert, able to communicate. Has generalized tremor in upper and lower extremities. He has difficulty walking, but there is no focal deficit. LABORATORY DATA: The patient has thoracic MRI done that showed moderate compression fracture of T12 vertebral body and no acute marrow edema, and consistent with chronic deformity. There is minimal re-propulsion at this level. ASSESSMENT: 1. He has generalized degenerative disc disease. 2. Status post fall and T12 compression fracture. 3. Parkinson's disease. 4. Hypertension. 5. Difficulty walking. PLAN: Awaiting Dr. Danny Zacarias's evaluation. In the meantime, we will continue him on Xanax and continue on lisinopril. I will discuss with Dr. Danny Zacarias, if he is a candidate of kyphoplasty, then he will be sent to TCU after procedure, but if there is no plan kyphoplasty, he can be sent to TCU anyway for physical therapy. Vishnu Bcekwith MD
[2017-03-26 17:45] VITALS: BP 119/56; PULSE 67; RESP 18; TEMP 98; O2SAT 97
== END 2017-03-26 18:24 | DRG 552 ==
LOC: ED 12:13 → ERH 16:47 → 5RNO 17:48
PROVIDERS: ADMIT Internal Medicine; ATTEND Internal Medicine
DX: S22.080A Wedge compression fracture of T11-T12 vertebra, initial encounter for closed fracture (principal); G20 Parkinson's disease; W01.0XXA Fall on same level from slipping, tripping and stumbling without subsequent striking against object, initial encounter; M81.0 Age-related osteoporosis without current pathological fracture; I10 Essential (primary) hypertension; K59.00 Constipation, unspecified; Z90.49 Acquired absence of other specified parts of digestive tract; Z79.899 Other long term (current) drug therapy; R40.2412 Glasgow coma scale score 13-15, at arrival to emergency department; Z88.6 Allergy status to analgesic agent; Z88.5 Allergy status to narcotic agent; M51.36 Other intervertebral disc degeneration, lumbar region; R26.2 Difficulty in walking, not elsewhere classified

== ENCOUNTER 2017-03-26 18:24 | Inpatient (IN) | payer MEDICARE, OTHER ==
[2017-03-26] MEDS ORDERED: Pneumococcal 23-Valent Vaccine IM ONE (20:34)
[2017-03-27] MEDS: POLYETHYLENE GLYCOL 3350 17 GM/Dose PACKET PO SCH (10:18)
[2017-03-27] MEDS ORDERED: Magnesium Citrate Oral SOL (300 ml) PO ONE (11:31)
[2017-03-27] MEDS: Lidocaine 5% Patch TD SCH (12:21)
--- NOTE | 2017-03-27 16:40 | HP ---
HISTORY OF PRESENT ILLNESS: The patient is an 87-year-old who had a fall at home few days prior to coming to the hospital. He was complaining of back pain, neck pain, so daughter brought him to emergency room. He was found to have T12 compression fracture, had MRI done, seems to be old. So initial plan was to do a kyphoplasty, but MRI does not show any acuteness, so it was decided not to do kyphoplasty and the patient was sent to TCU for rehab. PAST MEDICAL HISTORY: Significant for: 1. Parkinson's disease. 2. Hypertension. 3. Degenerative disk disease. 4. Difficulty walking. ALLERGIES: ALLERGY TO ACETAMINOPHEN AND OXYCODONE; HE GETS HALLUCINATION WITH NARCOTICS. MEDICATIONS AT HOME: He is on Neurontin 300 mg at bedtime, lisinopril 10/12.5 mg daily, carbidopa and levodopa one tablet 3 times a day. SOCIAL HISTORY: Lives with his daughter who works as a teacher. Denies smoking or drinking. REVIEW OF SYSTEMS: Significant for back pain. PHYSICAL EXAMINATION GENERAL: He is awake, alert, and oriented, complains of constipation for almost week. VITAL SIGNS: He is afebrile, pulse 75, respirations 18, blood pressure 116/57. LUNGS: Bilateral fair airflow. No rhonchi or crackle. HEART: S1 and S2 audible. ABDOMEN: Soft and nontender. No rebound, no guarding. NEUROLOGIC: He is awake and alert and able to communicate. ASSESSMENT: 1. Status post fall. 2. T12 compression fracture. 3. Degenerative disk disease. 4. Constipation. 5. Mid back pain. PLAN: We will give him one dose of magnesium citrate, start him on MiraLax and put lidocaine patch to the hurting area. We will continue all other medications and encourage ambulation and follow up. Vishnu Beckwith MD
[2017-03-28] MEDS: TraMADol/Apap 37.5/325 mg Tab PO PRN (05:56)
[2017-03-28] MEDS: Lidocaine 5% Patch TD SCH (10:23)
[2017-03-28] MEDS: POLYETHYLENE GLYCOL 3350 17 GM/Dose PACKET PO SCH (10:23)
[2017-03-29] MEDS: POLYETHYLENE GLYCOL 3350 17 GM/Dose PACKET PO SCH (10:33)
[2017-03-29] MEDS: Lidocaine 5% Patch TD SCH (10:33)
[2017-03-30] MEDS: TraMADol/Apap 37.5/325 mg Tab PO PRN (00:56)
--- NOTE | 2017-03-30 08:51 | PN ---
SUBJECTIVE: The patient is 87 years old, seen and examined. He is happy, he had bowel movement yesterday. Does complain of some neck pain and upper back pain, otherwise no nausea, vomiting or diarrhea. Ambulates with the therapist. PHYSICAL EXAMINATION VITAL SIGNS: The patient is afebrile. Pulse 83, respirations 20 and blood pressure 119/58. LUNGS: Bilateral fair airflow. No rhonchi or crackle. HEART: S1 and S2 audible. ABDOMEN: Soft and nontender. No rebound. No guarding. NEUROLOGICALLY: The patient is awake and alert, able to communicate. ASSESSMENT: 1. Status post fall. 2. Old T12 compression fracture. 3. Constipation. 4. Parkinson's disease. PLAN: Medications reviewed, seem to be appropriate. We will continue current medication. Continue physical therapy. Discharge plan for next Vishnu Beckwith MD
[2017-03-30] MEDS: POLYETHYLENE GLYCOL 3350 17 GM/Dose PACKET PO SCH (09:39)
[2017-03-30] MEDS: Lidocaine 5% Patch TD SCH (09:39)
--- NOTE | 2017-03-30 14:29 | PN ---
DATE: SUBJECTIVE: The patient is an 87 years old, seen and examined, complaint of constipation again. No nausea or vomiting. No diarrhea. Complaint of neck pain. Compliant of mid chest pain. No weakness or numbness in the arms and legs. PHYSICAL EXAMINATION: VITAL SIGNS: The patient is afebrile. Pulse 62, respirations 14, blood pressure 134/68. LUNGS: Bilateral fair airflow. No rhonchi or crackle. HEART: S1 and S2, audible. ABDOMEN: Soft, nontender. No rebound. No guarding. NEUROLOGICAL: The patient is awake and alert, able to communicate. Ambulates with a walker. ASSESSMENT: 1. Degenerative disk disease. 2. Status post fall. 3. T12 compression fracture. 4. Parkinson's disease. 5. Hypertension PLAN: We will continue the patient on MiraLax. He is receiving gabapentin at night. He is on levodopa and carbidopa. Order for Xanax 0.25 at bedtime has been started. Vishnu Beckwith MD
[2017-03-31] MEDS: Lidocaine 5% Patch TD SCH (09:35)
[2017-03-31] MEDS: POLYETHYLENE GLYCOL 3350 17 GM/Dose PACKET PO SCH (09:36)
--- NOTE | 2017-03-31 23:31 | PN ---
SUBJECTIVE: The patient is an 87 years old, seen and examined, sitting in chair, seems to be comfortable. Complaint of neck pain. Compliant of upper back pain. PHYSICAL EXAMINATION: VITAL SIGNS: He is afebrile. Pulse 62, respirations 12, blood pressure 122/69. LUNGS: Bilateral fair airflow. No rhonchi or crackle. HEART: S1 and S2, audible. ABDOMEN: Soft, nontender. No rebound. No guarding. NEUROLOGICAL: The patient is awake and alert, able to communicate. ASSESSMENT: 1. Status post fall. 2. Old T12 compression fracture. 3. Parkinson's disease. 4. Hyperlipidemia. 5. Chronic degenerative disc disease. 6. Anxiety disorder. PLAN: Currently, the patient is on Lidoderm patch and the patient is on laxative. She is on Neurontin. Continue her on carbidopa and levodopa. Encourage ambulation. We will follow the patient in a.m. Vishnu Beckwith MD
[2017-03-31] MEDS: TraMADol/Apap 37.5/325 mg Tab PO PRN (23:48)
[2017-04-01 06:21] VITALS: O2SAT 97
[2017-04-01] MEDS: Lidocaine 5% Patch TD SCH (09:24)
[2017-04-01] MEDS: POLYETHYLENE GLYCOL 3350 17 GM/Dose PACKET PO SCH ×2 (09:25→09:34)
--- NOTE | 2017-04-01 19:39 | PN ---
DATE: SUBJECTIVE: The patient is an 87 years old, seen and examined. Sitting in chair. Seems to be comfortable. No nausea. No vomiting or diarrhea. Eating and tolerating. PHYSICAL EXAMINATION: VITAL SIGNS: He is afebrile. Pulse 66, respirations 16 and blood pressure 145/57. LUNGS: Bilateral fair airflow. No rhonchi or crackle. HEART: S1 and S2 audible. ABDOMEN: Soft and nontender. No rebound. No guarding. NEUROLOGICAL: The patient is awake and alert. Able to communicate. ASSESSMENT AND PLAN: 1. Status post fall. 2. T12 thoracic compression fracture. 3. Parkinson's disease. 4. Hypertension. 5. Hyperlipidemia. PLAN: Continue the patient on current medication. Continue current analgesics. Laxative as needed. The patient is planned to be discharged in a.m. Vishnu Beckwith MD
[2017-04-02 05:20] VITALS: RESP 20; TEMP 98.5
[2017-04-02] MEDS: Lidocaine 5% Patch TD SCH (09:00)
[2017-04-02] MEDS: POLYETHYLENE GLYCOL 3350 17 GM/Dose PACKET PO SCH (09:01)
[2017-04-02 09:05] VITALS: BP 133/59; PULSE 69
[2017-04-02] MEDS ORDERED: Influenza Vaccine 60 mcg/0.5 mL SYR (4YR UP) IM ONE (16:53)
--- NOTE | 2017-04-03 04:07 | DS ---
SUBJECTIVE: The patient is an 87-year-old, seen and examined. He was admitted after he had fall and he was found to have T12 fracture, compression fracture, but MRI showed as old, so he was transferred to TCU for rehab. PHYSICAL EXAMINATION: GENERAL: He is awake, alert, communicative. both upper extremity right more than the left. VITAL SIGNS: He is afebrile, pulse 67, respirations 20, blood pressure 133/59. LUNGS: Bilateral fair airflow. No rhonchi or crackle. HEART: S1 and S2 audible. ABDOMEN: Soft, nontender. No rebound. No guarding. NEUROLOGICAL: The patient is awake, alert, oriented, communicative. Slow to walk. ASSESSMENT: 1. Status post fall. 2. T12 compression fracture, old. 3. History of constipation. 4. Hypertension. 5. Parkinson's disease. PLAN: The patient is clinically stable. He will be discharged home to his family. He will resume his medications including gabapentin, lisinopril daily, carbidopa and levodopa and give prescription of Lidoderm patch. We will reevaluate the patient after he come in office in the week or two. Vishnu Beckwith MD
== END 2017-04-02 17:48 | disposition home or self-care (01) | DRG 552 ==
LOC: TRCU 18:24
PROVIDERS: ADMIT Internal Medicine; ATTEND Internal Medicine
PROC: F07Z9ZZ Gait Training/Functional Ambulation Treatment (ICD-10-PCS; principal; 2017-03-27)
PROC: F08Z0ZZ Bathing/Showering Techniques Treatment (ICD-10-PCS; 2017-03-27)
PROC: F08Z1ZZ Dressing Techniques Treatment (ICD-10-PCS; 2017-03-27)
PROC: F08Z2ZZ Grooming/Personal Hygiene Treatment (ICD-10-PCS; 2017-03-27)
PROC: F08Z4ZZ Home Management Treatment (ICD-10-PCS; 2017-03-27)
DX: S22.089A Unspecified fracture of T11-T12 vertebra, initial encounter for closed fracture (principal); G20 Parkinson's disease; M48.54XA Collapsed vertebra, not elsewhere classified, thoracic region, initial encounter for fracture; I10 Essential (primary) hypertension; K59.00 Constipation, unspecified; E78.5 Hyperlipidemia, unspecified; F41.9 Anxiety disorder, unspecified; Z79.899 Other long term (current) drug therapy; M51.36 Other intervertebral disc degeneration, lumbar region; R26.2 Difficulty in walking, not elsewhere classified; Z88.6 Allergy status to analgesic agent; Z88.5 Allergy status to narcotic agent

== ENCOUNTER 2017-11-27 17:14 | Inpatient (IN) | payer MEDICARE, OTHER ==
[2017-11-27 17:26] VITALS: BMI 23.1
--- NOTE | 2017-11-27 18:08 | ED PDOC ---
Arrival/HPI - General Chief Complaint: Trauma Time Seen by Provider: 11/27/17 17:33 Historian: Patient, Family - History of Present Illness Narrative History of Present Illness (Text): 11/27/17 18:03 Patient is a 87 year old male whose past medical history includes Parkinson's disease, who presents to the Emergency department complaining of back pain since yesterday secondary to mechanical fall. Patient doesn't speak Malay and translation is provided by his daughter. Patient reports that on (11/16/17) he fell in his bathroom on his left side. Since his fall he had been doing well until yesterday when he started experiencing worsening back pain. He mentions that his back pain is limiting his movement. Of note patient has a history of a compression fracture which was treated for in March 2017. Patient denies fevers, chills, chest pain, shortness of breath, dyspnea on exertion, cough, nausea, vomiting, diarrhea, headache, dizziness, or any other complaint. Time/Duration: 24 hours Symptom Onset: Gradual Symptom Course: Worsening Context: Home Past Medical History - Provider Review Nursing Documentation Reviewed: Yes - Infectious Disease Hx of Infectious Diseases: None - Cardiac Hx Hypertension: Yes - Pulmonary Hx Respiratory Disorders: No - Neurological Hx Parkinson's Disease: Yes - HEENT Hx HEENT Disorder: No - Renal Hx Renal Disorder: No - Endocrine/Metabolic Hx Endocrine Disorders: No - Hematological/Oncological Hx Blood Disorders: No - Integumentary Hx Dermatological Disorder: No - Musculoskeletal/Rheumatological Hx Arthritis: Yes (DDD) Hx Falls: Yes - Gastrointestinal Hx Gastrointestinal Disorders: Yes (CONSTIPATION,CHOLECYSTECTOMY) - Genitourinary/Gynecological Hx Genitourinary Disorders: No Hx Reproductive Disorders: No - Psychiatric Hx Psychophysiologic Disorder: No Hx Substance Use: No - Surgical History Hx Cholecystectomy: Yes Family/Social History - Physician Review Nursing Documentation Reviewed: Yes Family/Social History: No Known Family HX Smoking Status: Never Smoked Hx Alcohol Use: No Hx Substance Use: No Allergies/Home Meds Allergies/Adverse Reactions: Allergies acetaminophen [From Percocet] Adverse Reaction (Severe, Verified 03/26/17 20:17) Agitation when given on past visit Daughter confirmed adverse reaction at bedside with this RN. oxycodone [From Percocet] Adverse Reaction (Severe, Verified 03/26/17 20:17) Agitation when given on past visit Daughter confirmed adverse reaction at bedside with this RN. Home Medications: Home Meds Medication Instructions Recorded Confirmed Ergocalciferol [Drisdol 50,000 1 cap PO Q7D 11/27/17 11/27/17 Intl Units Cap] Lisinopril [Zestril] 1 tab PO DAILY 11/27/17 11/27/17 Review of Systems - Physician Review All systems were reviewed & negative as marked: Yes - Review of Systems Constitutional: absent: Fevers, Night Sweats Respiratory: absent: SOB, Cough Cardiovascular: absent: Chest Pain, JORDAN Gastrointestinal: absent: Diarrhea, Nausea, Vomiting Neurological: absent: Headache, Dizziness Physical Exam Vital Signs Temp Pulse Resp BP Pulse Ox 11/27/17 19:15 66 17 158/87 H 98 11/27/17 18:09 98.5 F 82 18 188/88 H 93 L - Systems Exam Head: Present: Atraumatic, Normocephalic Pupils: Present: PERRL Extroacular Muscles: Present: EOMI Conjunctiva: Present: Normal Mouth: Present: Moist Mucous Membranes Neck: Present: Normal Range of Motion Respiratory/Chest: Present: Clear to Auscultation, Good Air Exchange. No: Respiratory Distress, Accessory Muscle Use Cardiovascular: Present: Regular Rate and Rhythm, Normal S1, S2. No: Murmurs Abdomen: No: Tenderness, Distention, Peritoneal Signs Back: Present: Midline Tenderness (Tenderness along the spinous process, along midline of L3-L5.), Paraspinal Tenderness (Left lumbar region). No: Normal Inspection Upper Extremity: Present: Normal Inspection. No: Cyanosis, Edema Lower Extremity: Present: Normal Inspection. No: Edema Neurological: Present: GCS=15, CN II-XII Intact, Speech Normal, Other ( Neurological exam consistent with Parkinson's disease with no focal findings, tremor is obvious and overall strength is weak and debilitated.). No: Normal Cerebellar Funct Skin: Present: Warm, Dry, Normal Color. No: Rashes Psychiatric: Present: Alert, Oriented x 3, Normal Insight, Normal Concentration Medical Decision Making ED Course and Treatment: 11/27/17 18:09 Impression: Patient is a 87 year old male complaining of worsening back pain since yesterday s/p mechanical fall. Differential Diagnosis included but are not limited to: Pyelonephritis vs. UTI vs. Musculoskeletal injury vs. Lumbar radiculopathy Plan: --Lumbar spinal canal MRI without contrast --Urine culture --Urinalysis -- Reassess and disposition Prior Visits: Notes and results from previous visits were reviewed. Progress Notes: 11/27/17 20:58 Brain MRI without Contrast: Creator : [employer] IMPRESSION: 1. Severe compression fractures are identified at the T10 and T12 vertebral levels. There is no acute marrow edema at the T12 vertebral level, consistent with a chronic deformity. Acute marrow edema is visualized at T10, consistent with an acute compression fracture. There is mild dorsal bowing of the posterior cortex at the T10 vertebral level, and a pathological fracture cannot be excluded. 2. Disc bulging is visualized diffusely within the lumbar spine. There is no significant narrowing of the thecal sac at any lumbar level. 3. Mild right neural foraminal narrowing is visualized at L4-5. 4. A right renal cyst or cystic lesion is partially visualized. Follow-up ultrasonography is recommended. 5. Incidental/non-acute findings are described above. 11/27/17 22:16: Case discussed in detail with Dr. Beckwith who is covering for Dr. Espinal. Agrees to admit patient to her service. Request Dr. Blackwell and Dr. Vincent Zacarias on consult. - Lab Interpretations Lab Results: Lab Results 11/27/17 18:50: Urine Color Yellow, Urine Appearance Clear, Urine pH 7.0, Ur Specific Perrin 1.015, Urine Protein Negative, Urine Glucose (UA) Negative, Urine Ketones Negative, Urine Blood Negative, Urine Nitrate Negative, Urine Bilirubin Negative, Urine Urobilinogen 2.0 H, Ur Leukocyte Esterase Negative - RAD Interpretation Radiology Orders: 11/27/17 17:59 SPINAL CANAL LUMBAR W/O CONT [MRI] Stat Bilingual Medical Assistant: Radiologist - Medication Orders Current Medication Orders: Discontinued Medications Ondansetron HCl (Zofran Odt) 4 mg PO STAT STA Stop: 11/27/17 21:13 Oxycodone/Acetaminophen (Percocet 5/325 Mg Tab) 1 tab PO STAT STA Stop: 11/27/17 21:13 - Scribe Statement The provider has reviewed the documentation as recorded by the Scribe Jairon Chris Provider Scribe Attestation: All medical record entries made by the Scribe were at my direction and personally dictated by me. I have reviewed the chart and agree that the record accurately reflects my personal performance of the history, physical exam, medical decision making, and the department course for this patient. I have also personally directed, reviewed, and agree with the discharge instructions and disposition. Disposition/Present on Arrival - Present on Arrival Any Indicators Present on Arrival: No History of DVT/PE: No History of Uncontrolled Diabetes: No Urinary Catheter: No History of Decub. Ulcer: No History Surgical Site Infection Following: None - Disposition Have Diagnosis and Disposition been Completed?: Yes Diagnosis: Vertebral compression fracture Disposition: HOSPITALIZED Disposition Time: 22:18 Patient Plan: Admission Condition: FAIR Forms: [facility] (Malay)
[2017-11-27 19:19] LABS: URINE BILIRUBIN NEGATIVE (NEGATIVE); URINE BLOOD NEGATIVE (NEGATIVE); URINE GLUCOSE (UA) NEGATIVE (NEGATIVE); URINE LEUKOCYTE ESTERASE NEGATIVE Leu/uL (NEGATIVE)
[2017-11-27 19:20] LABS: URINE APPEARANCE CLEAR (CLEAR); URINE COLOR YELLOW (YELLOW); URINE PROTEIN NEGATIVE mg/dL (<30 mg/dL)
--- NOTE | 2017-11-27 20:54 | MRI ---
EXAM: MR Lumbar Spine Without Intravenous Contrast EXAM DATE/TIME: 11/27/2017 5:59 PM CLINICAL HISTORY: The patient age is 87 years old and is male; Pain; Low back pain; Additional info: Fall 10 days ago, worsening pain Facility exam id and description: Mri spls spinal canal lumbar w/o cont TECHNIQUE: Magnetic resonance images of the lumbar spine without intravenous contrast in multiple planes. COMPARISON: No relevant prior studies available. FINDINGS: Vertebrae: Severe compression fractures are identified at the T10 and T12 vertebral levels. There is no acute marrow edema at the T12 vertebral level, consistent with a chronic deformity. Acute marrow edema is visualized at T10, consistent with an acute compression fracture. There is mild dorsal bowing of the posterior cortex at the T10 vertebral level, and a pathological fracture cannot be excluded. Disc bulging is visualized diffusely within the lumbar spine. The lumbar vertebral bodies are normal in height, without abnormal subluxation. Marrow: A few T1 hyperintense hemangiomas are identified within lumbar vertebral bodies. Spinal cord: The distal end of the conus medullaris ends at T12-L1, normal in position. Soft tissues: There is mild swelling of the subcutaneous tissues posterior to the lumbar spine. Renal: A T2 hyperintense right renal cyst or cystic lesion is partially visualized. The visualized portion measures 1.4 cm in diameter. DISCS/SPINAL CANAL/NEURAL FORAMINA: L1-L2: There is no significant narrowing of the thecal sac or neural foramina. L2-L3: There is no significant narrowing of the thecal sac or neural foramina. L3-L4: There is no significant narrowing of the thecal sac or neural foramina. There is mild facet arthropathy. L4-L5: There is no significant narrowing of the thecal sac. Mild narrowing of the inferior aspect of the right neural foramen is visualized. The left neural foramen is patent. Minimal left facet arthropathy is identified. L5-S1: Central disc bulging is identified causing effacement of the anterior epidural fat, without significant narrowing of the thecal sac. The neural foramina are patent. There is mild left facet arthropathy. IMPRESSION: 1. Severe compression fractures are identified at the T10 and T12 vertebral levels. There is no acute marrow edema at the T12 vertebral level, consistent with a chronic deformity. Acute marrow edema is visualized at T10, consistent with an acute compression fracture. There is mild dorsal bowing of the posterior cortex at the T10 vertebral level, and a pathological fracture cannot be excluded. 2. Disc bulging is visualized diffusely within the lumbar spine. There is no significant narrowing of the thecal sac at any lumbar level. 3. Mild right neural foraminal narrowing is visualized at L4-5. 4. A right renal cyst or cystic lesion is partially visualized. Follow-up ultrasonography is recommended. 5. Incidental/non-acute findings are described above.
[2017-11-27] MEDS ORDERED: Oxycodone/Acetaminophen 5/325 mg Tab PO STA (21:12)
[2017-11-27] MEDS: Dextrose 5%/0.45% NS 1,000 ML IV SCH (22:53)
--- NOTE | 2017-11-27 22:58 | HP ---
HISTORY OF PRESENT ILLNESS: The patient is 87 years old, known to me from office practice. He has severe Parkinson's disease with unstable gait. He has multiple fall at home. According to daughter, he fell a couple of days ago. To be exact, he fell on on 11/16/2017 in the bathroom on his left side. Daughter helped him to get up and walk. He was doing okay except some pain, but at this point pain got worse since yesterday. Today, he has difficulty getting out to bed or even to mobilize. Denies any numbness, weakness in the upper or lower extremity. He denies any urine or bowel incontinence. PAST MEDICAL HISTORY: Significant for, 1. Parkinson's disease. 2. Hypertension. 3. Degenerative disk disease. 4. The patient had similar episode in March last year. ALLERGY: HE IS ALLERGIC TO ACETAMINOPHEN, OXYCODONE. HE BECOMES CONFUSED AND HE START TO HALLUCINATE WITH THOSE MEDICATIONS. MEDICATION AT HOME: He is on vitamin D, lisinopril 10 mg daily, gabapentin 300 at bedtime and Sinemet. SOCIAL HISTORY: No history of smoking, drinking, alcohol use. He lives with his daughter who is very supportive. PHYSICAL EXAMINATION: GENERAL: He is somewhat confused, disoriented. VITAL SIGNS: He is afebrile, pulse 82, respirations 18, blood pressure 188/88. LUNGS: Bilateral fair airflow. No rhonchi or crackle. HEART: S1 and S2 audible. ABDOMEN: Soft. Nontender. No rebound. No guarding. NEUROLOGICAL: He is awake, alert, able to communicate. Complained of mid back pain. LABORATORY EXAM: Urinalysis is unremarkable. He had MRI of lumbosacral spine done today, which shows severe compression fracture at T10 and T12. No acute marrow edema at T12 vertebral level consistent with chronic deformity. Acute marrow edema is visualized at T10 consistent with an acute compression fracture. There is mild dorsal moving of posterior cortex of T10 vertebral pathological fracture cannot be excluded. ASSESSMENT: 1. Status post fall secondary to unstable gait. 2. Acute T12 vertebral fracture. 3. T10 vertebral fracture. 4. Old T12 fracture. 5. Hypertension. 6. Parkinson's disease. PLAN: The patient will be admitted for pain control and get Neuro consult by Dr. Blackwell and Dr. Danny Zacarias to evaluate if he is a candidate for kyphoplasty. We will follow up this patient in the a.m. Vishnu Beckwith MD
[2017-11-28] MEDS: Pantoprazole 40 mg EC Tab PO SCH (05:52)
[2017-11-28 06:48] LABS: BASO # 0.02 K/mm3 (0.0-2.0); BASO % 0.3 % (0.0-3.0); EOS # 0.1 (0.0-0.7); EOS % 1.7 % (1.5-5.0); GRAN # 3.54 (1.4-6.5); GRAN % 61.5 % (50.0-68.0); HEMOGLOBIN 10.9 g/dL (14.0-18.0); LYMPH # 1.6 (1.2-3.4); MEAN CELL VOLUME 92.6 fl (80.0-105.0); MEAN CORPUSCULAR HEMOGLOBIN 31.1 pg (25.0-35.0); MEAN CORPUSCULAR HGB CONC 33.6 g/dl (31.0-37.0); MEAN PLATELET VOLUME 9.8 fl (7.0-11.0); MONO # 0.6 (0.1-0.6); MONO % 9.5 % (1.0-6.0); RBC 3.5 10^6/uL (3.5-6.1); WHITE BLOOD COUNT 5.8 10^3/ul (4.5-11.0)
[2017-11-28 07:29] LABS: ALB/GLOB RATIO 1.3 (1.1-1.8); ALBUMIN 3.6 g/dL (3.0-4.8); ALT/SGPT 50 U/L (7-56); AST/SGOT 41 U/L (17-59); BLOOD UREA NITROGEN 23 mg/dL (7-21); GFR AFRICAN-AMERICAN > 60; GFR NON-AFRICAN AMERICAN > 60
[2017-11-28] MEDS: Dextrose 5%/0.45% NS 1,000 ML IV SCH (21:00)
--- NOTE | 2017-11-28 23:19 | PN ---
DATE: 11/28/2017 SUBJECTIVE: The patient is 87 years old seen and examined, seems to be confused, disoriented, had fall almost two weeks ago, complain of back pain. PHYSICAL EXAMINATION: GENERAL: He is afebrile. Pulse 57, respirations 18, blood pressure 112/46. LUNGS: Bilateral fair airflow. No rhonchi or crackles. HEART: S1 and S2 audible. ABDOMEN: Soft, nontender. No rebound. No guarding. However, he has paraspinal discomfort in the lumbar area. NEUROLOGICALLY: He is awake and alert, but confused and disoriented. ASSESSMENT AND PLAN: 1. Worsening Parkinson's disease. 2. Severe compression fracture of T10 and T12, T12 seems to be chronic; however, T10 has acute marrow edema. 3. Hypertension. PLAN: So plan is currently the patient is on bedrest and can be evaluated by Dr. Danny Zacarias. We will continue him on his IV fluids since his oral intake is unpredictable. Continue him on Mobic. Analgesic as needed. Vishnu Beckwith MD
--- NOTE | 2017-11-28 23:42 | CON ---
DATE: 11/28/2017 HISTORY OF PRESENT ILLNESS: This is an 87-year-old male who has a history of Parkinson's and unsteady gait and had multiple falls at home and found to have compression fracture, T10 and called to evaluate the patient. PAST MEDICAL HISTORY: Parkinson's, hypertension, degenerative disk disease. ALLERGIES: THE PATIENT IS ALLERGIC TO ACETAMINOPHEN, OXYCODONE. PHYSICAL EXAMINATION: NEUROLOGIC: The patient is awake, orientated to self and spontaneous movement of the extremities noted, upper more than the lower. Deep tendon reflexes 1+, plantars downgoing. Sensory appears intact. Cerebellar gait deferred. IMPRESSION: Compression fracture at T10 and also has at T12 and the patient has hypertension, Parkinson's disease. We will call Dr. Danny Zacarias for kyphoplasty if possible. Continue present management. We will follow up. Alexi Blackwell MD
[2017-11-29] MEDS: Pantoprazole 40 mg EC Tab PO SCH (07:41)
[2017-11-29] MEDS: Dextrose 5%/0.45% NS 1,000 ML IV SCH (13:55)
--- NOTE | 2017-11-29 15:52 | PN ---
DATE: 11/29/2017 SUBJECTIVE: Patient is 87 years old, seen and examined, lying in bed, seems to be comfortable. States, pain is bearable. He seems to be less confused today. OBJECTIVE: VITAL SIGNS: He is afebrile, pulse 63, respirations 20, and blood pressure 162/67. LUNGS: Bilateral fair airflow. No rhonchi or crackles. HEART: S1, S2 audible. No murmur. ABDOMEN: Soft, nontender. No rebound. No guarding. NEUROLOGIC: He is awake, alert, oriented, and communicative. ASSESSMENT: 1. Status post multiple falls. 2. Worsening Parkinson disease. 3. Vertebral fracture. 4. Hypertension. 5. Deconditioning, difficulty walking. 6. Bilateral knee osteoarthritis. 7. Compression fracture of T10 and T12. PLAN: We will continue current pain medications. Awaiting Dr. Danny Zacarias's evaluation if he is a candidate of kyphoplasty or not. If not, he will be sent to [facility]. Vishnu Beckwith MD
[2017-11-30] MEDS: Pantoprazole 40 mg EC Tab PO SCH (05:33)
--- NOTE | 2017-11-30 13:00 | PN ---
DATE: 11/30/2017 SUBJECTIVE: The patient is 87 years old, seen and examined. Seems to be comfortable. He states his pain is better. Denies any nausea or vomiting. Eating and tolerating. PHYSICAL EXAMINATION: VITAL SIGNS: He is afebrile, pulse 72, respirations 20, blood pressure 160/81. LUNGS: Bilateral fair airflow. No rhonchi or crackle. HEART: S1 and S2 audible. ABDOMEN: Soft. Nontender. No rebound. No guarding. NEUROLOGICAL: The patient is awake, alert, oriented, communicative. EXTREMITIES: Bilateral legs, no edema. No motor or sensory deficits. LABORATORY EXAM: MRI of lumbar spine shows acute T10 fracture. Awaiting Dr. Danny Zacarias's evaluation. ASSESSMENT: 1. Status post fall. 2. Worsening Parkinson's disease. 3. Acute T10 vertebral fracture. 4. Hypertension. 5. Mild dementia. PLAN: We will continue the patient on Sinemet, Protonix and gabapentin. He is getting Mobic. I will discontinue IV fluids since his oral intake is satisfactory. His blood pressure seems to be running high. I will increase his lisinopril to 10 mg twice a day. Vishnu Beckwith MD
--- NOTE | 2017-11-30 15:33 | PN ---
DATE: 11/30/2017 NEUROLOGY FOLLOWUP CHIEF COMPLAINT: Followup for new T10 compression fracture. SUBJECTIVE: The patient is comfortable in bed. He states his pain is slightly better and is sleeping. He is mildly deconditioned. Has MRI of lumbar spine showed acute T10 fracture with marrow edema, awaiting Dr. Danny Zacarias's evaluation for possible vertebroplasty. PAST MEDICAL HISTORY: Parkinson's disease, frequent falls, mild Parkinson's dementia, hypertension, history of T12 compression fracture on 03/24/2017. REVIEW OF SYSTEMS: Fourteen-point review of systems was negative except as per the HPI. ALLERGIES: TO ACETAMINOPHEN, OXYCODONE. MEDICATIONS: Reviewed by nurses' reconciliation sheet. SOCIAL HISTORY: No illicit drug use, smoking or EtOH abuse. FAMILY HISTORY: Noncontributory. LABORATORY DATA: No new labs done today. PHYSICAL EXAMINATION: VITAL SIGNS: Temperature 98.4, pulse rate 72, blood pressure 160/81, respiratory rate of 20, oxygen saturation 95% by room air. GENERAL: The patient is lying in bed, in no acute distress. HEENT: Atraumatic, normocephalic. PERRLA. Extraocular muscles intact. NECK: Supple. No JVD. No adenopathy noted. LUNGS: Clear to auscultation. No adventitious sounds. HEART: S1 and S2. Normal rate and rhythm. No murmurs, rubs or gallops. ABDOMEN: Soft, nontender and nondistended. Bowel sounds are present. EXTREMITIES: No clubbing. No cyanosis. Peripheral pulses 2+ felt bilaterally. NEUROLOGIC: The patient is alert and oriented to person, place, month, but not year. Recall after 5 minutes is 0/3. Poor attention span and slow thought process. Flat affect. Cranial nerves II through XII intact. Motor exam: Has increased tone throughout. Mild cogwheel rigidity at the wrist. He is very bradykinetic. Sensory exam: Light touch, pinprick, proprioception and vibration are intact. DTRs are 2+ throughout, 1 at both knees and ankles. Coordination: [id number] intact. Mild resting tremor noted. Gait is deferred for now. ASSESSMENT AND PLAN: This is an 87-year-old man with history of Parkinson's disease, history of hypertension, mild dementia, history of T12 compression fracture on 03/24/2017, who presented with frequent falls, status post fall and deconditioned state and had an acute T10 vertebral compression fracture with marrow edema. At this time, I will recommend, 1. Dr. Danny Zacarias's consult for vertebroplasty. 2. Continue with Mobic 50 mg p.o. daily in addition to gabapentin 300 mg p.o. at bedtime for neuropathic relief. 3. Continue with current dose of Sinemet 1 tab p.o. t.i.d. 25/100. 4. We need physical therapy and occupational therapy and likely subacute rehab. 5. Keep his systolic blood pressure between 130s-140s and diastolic 70-80s and continue with current present medical management. Thank you for this followup. Francisco Blackwell MD
[2017-12-01] MEDS: Pantoprazole 40 mg EC Tab PO SCH (05:58)
[2017-12-01] MEDS ORDERED: Magnesium Citrate Oral SOL (300 ml) PO ONE (11:01)
--- NOTE | 2017-12-01 12:07 | PN ---
DATE: 12/01/2017 SUBJECTIVE: The patient is 87 years old, seen and examined. Complained of being constipated. Complained of back pain. Spoke to Dr. Danny Zacarias and recommended thoracic MRI will be done and he will decide about kyphoplasty. PHYSICAL EXAMINATION: VITAL SIGNS: He is afebrile, pulse 76, respirations 18, blood pressure 160/71. LUNGS: Bilateral fair airflow. No rhonchi or crackle. HEART: S1 and S2 audible. ABDOMEN: Soft. Nontender. No rebound. No guarding. SPINE: He has paraspinal discomfort in the lower thoracic upper spinal area. LABORATORY EXAM: Urine cultures are negative. ASSESSMENT: 1. Status post multiple falls. 2. Acute compression fracture of lower thoracic vertebrae. 3. Parkinson's disease that is worsening. 4. Hypertension. 5. Constipation. PLAN: We will give him 1 bottle of magnesium citrate followed by MiraLax daily. Thoracic MRI will be ordered and will follow up with Dr. Danny Zacarias. Vishnu Beckwith MD
[2017-12-01] MEDS: Nystatin 100,000 Units/gm Topical Pow(15 gm) TOP SCH (13:53)
[2017-12-02 07:52] VITALS: RESP 18
[2017-12-02] MEDS: Nystatin 100,000 Units/gm Topical Pow(15 gm) TOP SCH (09:36)
--- NOTE | 2017-12-02 10:07 | MRI ---
PROCEDURE: MR THORACIC SPINE WITHOUT CONTRAST HISTORY: compression fracture COMPARISON: 03/24/2017 MRI TECHNIQUE: Multiecho multiplanar sequences were performed through the thoracic spine without the use of intravenous contrast. FINDINGS: ALIGNMENT: Normal thoracic spinal alignment. Normal thoracic kyphosis. VERTEBRA: There is a chronic mild compression fracture of T12. There is a acute compression fracture of T10 with marrow edema and moderate loss of vertebral height. There is minimal retropulsion. There is no significant stenosis. MARROW: Marrow edema at T10 consistent with acute compression fracture PARASPINAL SOFT TISSUES: Unremarkable. CORD: Unremarkable thoracic cord. No volume loss, signal abnormality or syrinx. DISCS: No disc herniation, spinal canal stenosis, or neuroforaminal narrowing. OTHER FINDINGS: None. IMPRESSION: Acute compression fracture at T10. Chronic compression fracture of T12
[2017-12-02 20:13] VITALS: BP 119/53; PULSE 61; TEMP 98.3; O2SAT 94
--- NOTE | 2017-12-03 07:03 | DS ---
HISTORY OF PRESENT ILLNESS: The patient is 87 years old, seen and examined. He was admitted because of multiple falls at home. He has compression fracture of his thoracic vertebrae. Plan was to do kyphoplasty. The patient has thoracic vertebral MRI done. Plan for kyphoplasty tomorrow. PHYSICAL EXAMINATION GENERAL: He is awake and alert, communicative. VITAL SIGNS: He is afebrile, pulse 68, respirations 18, blood pressure 156/73. LUNGS: Bilateral good airflow. No rhonchi or crackle. HEART: S1 and S2 audible. ABDOMEN: Soft, nontender. No rebound. No guarding. NEUROLOGICAL: The patient is awake, alert, oriented, able to communicate, somewhat forgetful. He has cervical degenerative disk disease. MRI of thoracic spine done that shows acute compression fracture at T10 and chronic compression fracture of T12. ASSESSMENT AND PLAN: 1. Worsening Parkinson disease. 2. Status post multiple falls. 3. T10 acute fracture. Scheduled for kyphoplasty tomorrow, but because of insurance reason, the patient has to be discharged today. He will be brought back for outpatient kyphoplasty. We will resume all of his medications. He has been accepted to TCU then to . We will follow with you. Vishnu Beckwith MD
== END 2017-12-02 20:19 | DRG 552 ==
LOC: ED 17:14 → ERH 22:16 → 5RNO 23:21
PROVIDERS: ADMIT Internal Medicine; ATTEND Internal Medicine
DX: S22.079A Unspecified fracture of T9-T10 vertebra, initial encounter for closed fracture (principal); F02.80 Dementia in other diseases classified elsewhere, unspecified severity, without behavioral disturbance, psychotic disturbance, mood disturbance, and anxiety; G20 Parkinson's disease; K59.00 Constipation, unspecified; M17.0 Bilateral primary osteoarthritis of knee; N28.1 Cyst of kidney, acquired; R29.6 Repeated falls; W18.30XA Fall on same level, unspecified, initial encounter; M48.54XD Collapsed vertebra, not elsewhere classified, thoracic region, subsequent encounter for fracture with routine healing; M50.30 Other cervical disc degeneration, unspecified cervical region; I10 Essential (primary) hypertension; Z79.899 Other long term (current) drug therapy; Z90.49 Acquired absence of other specified parts of digestive tract; Z91.81 History of falling; Y92.009 Unspecified place in unspecified non-institutional (private) residence as the place of occurrence of the external cause

== ENCOUNTER 2017-12-10 13:05 | Day surgery (SDC) | payer MEDICARE ==
[2017-12-08 13:10] VITALS: BMI 21.9
[2017-12-10 13:48] LABS: BASO # 0.02 K/mm3 (0.0-2.0); BASO % 0.3 % (0.0-3.0); EOS # 0.1 (0.0-0.7); EOS % 1.4 % (1.5-5.0); GRAN # 3.78 (1.4-6.5); GRAN % 64.6 % (50.0-68.0); HEMOGLOBIN 12.4 g/dL (14.0-18.0); LYMPH # 1.6 (1.2-3.4); MEAN CELL VOLUME 90.3 fl (80.0-105.0); MEAN CORPUSCULAR HEMOGLOBIN 30.9 pg (25.0-35.0); MEAN CORPUSCULAR HGB CONC 34.3 g/dl (31.0-37.0); MEAN PLATELET VOLUME 10.7 fl (7.0-11.0); MONO # 0.4 (0.1-0.6); MONO % 6.7 % (1.0-6.0); RBC 4.01 10^6/uL (3.5-6.1); WHITE BLOOD COUNT 5.9 10^3/ul (4.5-11.0)
[2017-12-10 14:02] LABS: INR 1.04 (0.93-1.08); PARTIAL THROMBOPLASTIN TIME 24.7 Seconds (25.1-36.5)
[2017-12-10 14:13] LABS: BLOOD UREA NITROGEN 40 mg/dL (7-21); CALCIUM 9.1 mg/dL (8.4-10.5); GFR AFRICAN-AMERICAN > 60; GFR NON-AFRICAN AMERICAN > 60
[2017-12-10] MEDS ORDERED: Lidocaine 2% Inj (20ml) ONE (14:40)
[2017-12-10] MEDS ORDERED: Iohexol 350mgl/ml 50 ML ONE (14:41)
[2017-12-10] MEDS ORDERED: Midazolam 2 MG/2 ML VIAL ONE (15:26)
[2017-12-10] MEDS ORDERED: Sodium Chloride 0.45% 1,000 ML IV SCH (16:15)
--- NOTE | 2017-12-10 17:39 | VASCULAR ---
PROCEDURE: 1. T10 kyphoplasty. 2. T10 vertebral body biopsy. HISTORY: Recent fall. Severe, refractory back pain. Unresponsive to bed rest and analgesics. Acute T10 compression fracture on MRI. PHYSICIAN(S): Danny Zacarias MD. TECHNIQUE: he relative risks and indications of the procedure were explained to the patient and his daughter and informed written consent obtained. The patient was placed prone on the arteriography table and the thoracolumbar spine prepped and draped in the usual sterile fashion. Conscious sedation and monitoring were provided throughout the procedure by a nurse. The T10 vertebral body was carefully localized with fluoroscopy. The skin and soft tissues were anesthetized with 1% Xylocaine. Under direct fluoroscopic guidance, bilateral transpedicular bone needles were placed into the posterior aspect of the T10 vertebral body. Through the right needle, a biopsy of the [id number] body was performed. The specimen was sent to histology. Next bilateral 10 mm bone balloons were placed in the mid portion of the T10 vertebral body. They were inflated to approximately 3 cc apiece with dilute contrast. The balloons were removed and 4.0 of barium-impregnated PMMA cement instilled into the T10 vertebral body. No extravasation was seen. The bone needles were removed. The patient tolerated the procedure well. IMPRESSION: 1. Fluoroscopically-guided T10 kyphoplasty. 2. Fluoroscopic T10 vertebral body biopsy.
[2017-12-11 06:21] LABS: HEMOGLOBIN 11.9 g/dL (14.0-18.0); MEAN CELL VOLUME 89.6 fl (80.0-105.0); MEAN CORPUSCULAR HEMOGLOBIN 31.1 pg (25.0-35.0); MEAN CORPUSCULAR HGB CONC 34.7 g/dl (31.0-37.0); MEAN PLATELET VOLUME 10.6 fl (7.0-11.0); RBC 3.83 10^6/uL (3.5-6.1); RED CELL DISTRIBUTION WIDTH 13.1 % (11.5-14.5); WHITE BLOOD COUNT 6.4 10^3/ul (4.5-11.0)
[2017-12-11 06:52] LABS: BLOOD UREA NITROGEN 30 mg/dL (7-21); CALCIUM 8.8 mg/dL (8.4-10.5); GFR AFRICAN-AMERICAN > 60; GFR NON-AFRICAN AMERICAN > 60
[2017-12-11 09:32] VITALS: RESP 20; TEMP 97.4; O2SAT 94
[2017-12-11] MEDS ORDERED: Pantoprazole 40 mg EC Tab PO SCH (10:00)
--- NOTE | 2017-12-11 13:17 | HP ---
HISTORY OF PRESENT ILLNESS: The patient is 87 years old, known to me from my office practice. The patient had a fall at home on . With the help of family, he was able to get up and walk around. He was okay for a few days, but started to have an excruciating pain, not relieved by Tylenol. He told his daughter who brought him to emergency room. He had MRI of the thoracic and lumbar spine done, was shown to have acute T10 vertebral fracture. Since Dr. Danny Zacarias was not available, he was sent to [facility] for rehab and was brought back yesterday for kyphoplasty. The patient underwent kyphoplasty, so he was kept overnight for observation. PAST MEDICAL HISTORY: He has significant past medical history of, 1. Hypertension. 2. Degenerative disk disease. 3. Parkinson's disease. 4. Status post multiple falls. 5. Previous lumbar kyphoplasty. ALLERGIES: ALLERGIC TO OXYCODONE. MEDICATION AT HOME: He is on Protonix, Mobic 15 daily, Neurontin 300 mg at bedtime, carbidopa and levodopa 1 tablet three times a day, lisinopril 10 mg twice a day and acetaminophen 650 every 6. SOCIAL HISTORY: He lives with his daughter. He drinks half a glass of wine almost everyday. REVIEW OF SYSTEMS: Complained of upper back pain, lower back pain. PHYSICAL EXAMINATION: GENERAL: He is awake, alert, oriented, communicative. Has flexion deformity of his neck. He does have drooling. He is slow to respond. VITAL SIGNS: He is afebrile, pulse 62, respirations 20, blood pressure 147/60. LUNGS: Bilateral fair airflow. No rhonchi or crackle. HEART: S1 and S2 audible. ABDOMEN: Soft. Nontender. No rebound. No guarding. NEUROLOGICAL: He is awake, alert, oriented, able to communicate, walks with assistance. LABORATORY EXAM: WBC 6.4, hemoglobin 11.9, hematocrit 34.3, platelet 140, PT 12, INR 1.04. Chemistry: Sodium 142, potassium 3.9, chloride 107, CO2 of 26, BUN 30, creatinine 0.9, blood sugar of 108. ASSESSMENT: 1. Status post fall. 2. T10 acute vertebral fracture, status post kyphoplasty for T10 vertebra. Biopsy was also done. 3. Parkinson disease. 4. Hypertension. 5. Deconditioning, difficulty walking. PLAN: The patient is clinically stable. He is eating and tolerating. Still has pain, but can be managed as outpatient and he will be discharged back to Loc[facility]. Vishnu Beckwith MD
[2017-12-11 17:37] VITALS: BP 130/66; PULSE 94
== END 2017-12-11 18:16 | disposition home or self-care (01) ==
LOC: SDSVAS 13:05 → 3RNO 17:42 → SDSVAS 12-11 18:16
PROVIDERS: ATTEND Radiology Vascular & Interventional Radiology
DX: S22.079A Unspecified fracture of T9-T10 vertebra, initial encounter for closed fracture (principal); I10 Essential (primary) hypertension; G20 Parkinson's disease; W19.XXXA Unspecified fall, initial encounter; Y92.009 Unspecified place in unspecified non-institutional (private) residence as the place of occurrence of the external cause; Z88.5 Allergy status to narcotic agent
CPT/HCPCS: 22513; 36415 ×2; 80048 ×2; 85025; 85027; 85610; 85730; 88305; 97162; 97530; 99152; 99153; C1713; G8978; G8979; J1644; J2250; J2405; J3010; J7030 ×2; Q9967